=== PATIENT | male | born 1955 | race Caucasian/White ===

== ENCOUNTER → 2019-11-06 09:46 | Outpatient (CLI) | payer BC, SELFPAY ==
--- NOTE | ~2019-11-06 | US_ITS ---
EXAMINATION: US abdomen limited EXAM DATE: 11/06/2019 10:16 INDICATION: Right upper quadrant pain. TECHNIQUE: Multiple grayscale and Doppler images of the abdomen right upper quadrant were obtained (b y a technologist who performed the scan) and subsequently reviewed. There is no prior study for gosia wiley. FINDINGS: The pancreatic head and body are normal in appearance. The pancreatic tail is not visualized. The l iver has normal echogenicity and contour. Focal slightly hyperechoic region was measured at 1.6 x 0. 9 x 1.1 cm. Lesions are nonspecific by ultrasound but statistically this is most likely benign findin g. There is no evidence of intrahepatic biliary duct dilation. Portal venous flow was seen in the h epatopedal, normal direction and has normal Doppler waveform. No right-sided hydronephrosis. Common bile duct measures 3 mm, which is normal. The gallbladder wall is normal in thickness, with ex pected amount of distention. No sonographic evidence of pericholecystic fluid. There is no cholelit hiases. Technologist performing exam reports patient did not demonstrate sonographic Perla's sign. Please note that this sign is less reliable in patients who have received pain medication. IMPRESSION: 1. Nonspecific hyperechoic small liver region or lesion; consider 6 month follow-up right upper quad rant sonogram. Reviewed, dictated and finalized at location B. RUMENT MAINTENANCE SUPERVISOR IMPRESSION: 1. Nonspecific hyperechoic small liver region or lesion; consider 6 month foll ow-up right upper quadrant sonogram.
== END ==
PROVIDERS: Visit Provider Physician Assistant
DX: R10.11 Right upper quadrant pain (principal); R93.89 Abnormal findings on diagnostic imaging of other specified body structures
CPT/HCPCS: 76705

== ENCOUNTER → 2020-05-16 08:44 | Outpatient (CLI) | payer BC, SELFPAY ==
--- NOTE | ~2020-05-16 | US_ITS ---
EXAMINATION: US abdomen limited EXAM DATE: 05/16/2020 09:09 INDICATION: Liver disease. Follow-up. TECHNIQUE: Multiple grayscale and Doppler images of the abdomen right upper quadrant were obtained (george y a technologist who performed the scan) and subsequently reviewed. Comparison is made to prior exami nation from 11/06/2019. FINDINGS: The pancreatic head and body are normal in appearance. The pancreatic tail is not visualized. The l iver has normal echogenicity and contour. Focal homogeneously hyperechoic liver lesion near the dome measuring 1.3 x 1.3 1.3 x 1.7 cm (measurements on prior study at 1.6 x 0.9 x 1.1). This may have min imally increased, or could be within whirley operator variation of measurement acquisition. There is no evide nce of intrahepatic biliary duct dilation. Portal venous flow was seen in the hepatopedal, normal di rection and has normal Doppler waveform. No right-sided hydronephrosis. Common bile duct measures 5 mm, which is normal. The gallbladder wall is normal in thickness, with ex pected amount of distention. No sonographic evidence of pericholecystic fluid. Focal echogenic focu s along the nondependent portion of wall measuring 4 mm which could be a small polyp or fold. Techno logist performing exam reports patient did not demonstrate sonographic Perla's sign. Please note th at this sign is less reliable in patients who have received pain medication. IMPRESSION: Small nonspecific liver lesion, either stable or with minimal interval increase in size. Statistically most likely benign finding but given that cannot be certain this has demonstrated stabi lity, consider MRI abdomen without and with contrast which may add specificity. Reviewed, dictated and finalized at location B. IMPRESSION: Small nonspecific liver lesion, either stable or with minimal inter ross increase in size. Statistically most likely benign finding but given that c annot be certain this has demonstrated stability, consider MRI abdomen without and with contrast which may add specificity.
== END ==
PROVIDERS: PCP Family Medicine; Visit Provider Physician Assistant
DX: K76.9 Liver disease, unspecified (principal)
CPT/HCPCS: 76705

== ENCOUNTER → 2022-06-04 09:17 | Outpatient (CLI) | payer MEDICARE, SELFPAY ==
--- NOTE | ~2022-06-04 | CT_ITS ---
EXAMINATION: CT lung screening DATE: 06/04/2022 09:33 INDICATION: Personal history of nicotine dependence, prior smoker with 30 pack year history TECHNIQUE: Computed tomography (CT) of the chest was performed without intravenous contrast. The dose -length product (DLP) was 114.49 mGy-cm. Automated exposure control and iterative reconstruction tech [employer] were employed. COMPARISON: None FINDINGS: There is moderate emphysema. The lungs are free of acute opacities. No suspicious pulmonary nodules are identified. Calcified pulmonary nodules and calcified left hilar lymph nodes are consist ent with old granulomatous disease. No pathologically enlarged thoracic lymph nodes are identified. T he heart size is normal. There is mild thoracic spondylosis. IMPRESSION: 1. Lung-RADS category 1: Negative. Continue annual screening with noncontrast low-dose chest CT in 12 months. Reviewed, dictated and finalized at location B. IMPRESSION: 1. Lung-RADS category 1: Negative. Continue annual screening with noncontrast l ow-dose chest CT in 12 months.
--- NOTE | ~2022-06-04 | US_ITS ---
EXAMINATION: US aorta [facility] DATE: 06/04/2022 09:46 INDICATION: Abdominal aortic aneurysm screening. Nicotine dependence. TECHNIQUE: Grayscale, color Doppler, and pulsed Doppler images of the aorta and common iliac arteries were obtained. COMPARISON: None. FINDINGS: The proximal aorta measures 2.4 cm. The mid aorta measures 2.4 cm. The distal aorta measures 2.4 cm. The right common iliac artery measures 1.1 cm. The left common iliac artery measures 1.1 cm. IMPRESSION: 1. Normal caliber abdominal aorta. Reviewed, dictated and finalized at location A.
== END ==
PROVIDERS: PCP Family Medicine; Visit Provider Nurse Practitioner
DX: Z87.891 Personal history of nicotine dependence (principal); Z82.49 Family history of ischemic heart disease and other diseases of the circulatory system
CPT/HCPCS: 71271; 76706

== ENCOUNTER 2022-09-29 14:59 | Outpatient (CLI) | payer MEDICARE, SELFPAY ==
--- NOTE | ~2022-09-29 | CT_ITS ---
EXAMINATION: CTA brain carotid DATE: 09/29/2022 15:46 INDICATION: impaired balance TECHNIQUE: Computed tomographic angiography (CTA) of the head was performed without and with 100 mL O mnipaque-350 intravenous contrast. CTA of the neck was performed with intravenous contrast. Automated exposure control and iterative reconstruction technique were employed. The dose-length product was 2 007.92 mGy-cm. Maximum intensity projection and volume rendered 3D-reconstructions were created by jerrica jerome technologist on a separate workstation. COMPARISON: None. FINDINGS: CT BRAIN: Heterogeneously enhancing 5.3 x 4.8 x 6.7 cm intraparenchymal mass in the right parietal lobe with obrien rrounding vasogenic edema, effacement of the right occipital horn and right cerebral sulci, and 4 mm right to left midline shift. No acute large vessel infarct, intracranial hemorrhage, or hydrocephalus . Atherosclerotic intracranial calcifications. CTA HEAD: No large vessel occlusion, aneurysm, high flow vascular malformation, nidus or extravasation. CTA NECK: Aortic arch and proximal great vessels: Minimal atherosclerotic calcifications at the visualized aort ic arch and proximal great vessels. Right common carotid, carotid bifurcation, and internal carotid artery: No significant plaque.There i s 0% stenosis of the proximal right internal carotid artery relative to normal distal artery lumen di ameter (NASCET criteria). Left common carotid, carotid bifurcation, and internal carotid artery: No significant plaque.There is 0% stenosis of the proximal left internal carotid artery relative to normal distal artery lumen diam eter (NASCET criteria). Vertebral arteries: No significant plaque or stenosis. Vertebral arteries co-dominant. Other findings: Calcified mediastinal and hilar lymph nodes. Calcified left lung granuloma. Mild emph ysematous change. IMPRESSION: 1. 6.7 cm heterogeneous intraparenchymal brain mass in the right parietal lobe, causing mild mass eff ect, which likely represents a primary tumor such as GBM or secondary metastatic lesion. Consider MR of the brain without and with contrast for further characterization and neurosurgical consultation. 2. No acute large vessel infarct. 3. No large vessel occlusion. 4. No significant carotid or vertebral artery stenosis. Results reported telephonically to GANESH Vargas by Dr. Fraser at 4:05 PM on 09/29/2022. Reviewed, dictated and finalized at location K. NCIAL SYSTEMS ANALYST IMPRESSION: 1. 6.7 cm heterogeneous intraparenchymal brain mass in the right parietal lobe, causing mild mass effect, which likely represents a primary tumor such as GBM or secondary metastatic lesion. Consider MR of the brain without and with contr ast for further characterization and neurosurgical consultation. 2. No acute large vessel infarct. 3. No large vessel occlusion. 4. No significant carotid or vertebral artery stenosis. Results reported telephonically to GANESH Vargas by Dr. Fraser at 4:05 PM on 09/29/2022.
[2022-09-29 15:35] LABS: Estimated Glomerular Filt Rate > 60
== END 2022-09-29 15:00 | disposition home or self-care (01) ==
PROVIDERS: PCP Family Medicine; Visit Provider Nurse Practitioner
DX: R26.89 Other abnormalities of gait and mobility (principal)
CPT/HCPCS: 70496; 70498; Q9967

== ENCOUNTER → 2022-10-07 10:37 | Outpatient (CLI) | payer MEDICARE, SELFPAY ==
--- NOTE | ~2022-10-07 | MR_ITS ---
EXAMINATION: MR brain/brain stem wo/w con DATE: 10/07/2022 11:27 INDICATION: Brain mass TECHNIQUE: Magnetic resonance imaging (MRI) of the brain and brainstem was performed without and with 16 mL MultiHance intravenous contrast. COMPARISON: Head CT 09/29/2022 FINDINGS: In the right parietal lobe, there is a 5.9 x 4.6 cm enhancing mass with surrounding vasogen ic edema. There is no intracranial hemorrhage or acute ischemic or infarct. There is 5 mm leftward mi dline shift at the foramen of Monro. There is mild mucosal thickening in the ethmoid sinuses. The orb its are normal. The mastoid air cells are normal. IMPRESSION: 1. 5.9 cm mass in right parietal lobe, which may be a glioblastoma or less likely metastatic disease. Reviewed, dictated and finalized at location A. PING ORDER CLERK IMPRESSION: 1. 5.9 cm mass in right parietal lobe, which may be a glioblastoma or less like ly metastatic disease.
== END ==
PROVIDERS: PCP Nurse Practitioner; Visit Provider Nurse Practitioner
DX: G93.89 Other specified disorders of brain (principal)
CPT/HCPCS: 70553; A9577

== ENCOUNTER 2022-10-12 14:30 | Outpatient (CLI) | payer MEDICARE, SELFPAY ==
[2022-10-12 14:42] LABS: Basophils Absolute Auto 0.1 K/mm3 (0.0-0.1); Basophils Percent Auto 1.1 % (0.2-1.2); Eosinophils Absolute Auto 0.1 K/mm3 (0-0.3); Eosinophils Percent Auto 0.8 % (0-4.4); Hematocrit 45.1 % (42.0-52.0); Hemoglobin 15.6 g/dL (14.0-18.0); Immature Granulocyte Absolute 0.01 K/mm3 (0.00-0.031); Immature Granulocyte Percent A 0.1 % (0-0.5); Lymphocytes Absolute Auto 1.67 K/mm3 (0.9-3.2); Mean Corpuscular HGB Conc 34.6 g/dl (32-36); Mean Corpuscular Hemoglobin 32.4 pg (26-34); Mean Corpuscular Volume 93.6 fl (80-100); Mean Platelet Volume 9.4 fl (7.4-10.4); Monocytes Absolute Auto 0.7 K/mm3 (0.1-0.6); Monocytes Percent Auto 8.7 % (2.6-8.5); Neutrophils Absolute Auto 5.4 K/mm3 (1.3-6.7); Neutrophils Percent Auto 68.3 % (45.5-73.1); Platelet Count Result 296 k/mm3 (150-375); Red Blood Count 4.82 M/mm3 (4.6-6.20); Red Cell Distribution Width 11.9 % (11.5-14.5)
[2022-10-12 16:35] LABS: Alanine Aminotransferase 20 U/L (6-50); Albumin Level 4.5 g/dL (3.5-5.1); Alkaline Phosphatase 90 U/L (38-126); Anion Gap 7 mmol/L (8-16); Aspartate Amino Transferase 27 U/L (17-59); Bilirubin,Total 0.6 mg/dL (0.2-1.3); Blood Urea Nitrogen 15 mg/dL (9-20); Calcium 9.2 mg/dL (8.4-10.2); Carbon Dioxide 29 mmol/L (22-30); Chloride 105 mmol/L (98-107); Estimated Glomerular Filt Rate > 60; Glucose 97 mg/dL (65-110); Potassium 4.5 mmol/L (3.4-5.0); Sodium 141 mmol/L (137-145)
== END 2022-10-12 14:31 | disposition home or self-care (01) ==
LOC: ANHLAB 14:31
PROVIDERS: PCP Family Medicine; Visit Provider Internal Medicine Hematology & Oncology
DX: C71.9 Malignant neoplasm of brain, unspecified (principal)
CPT/HCPCS: 36415; 80053; 85025

== ENCOUNTER 2022-10-14 07:11 | Outpatient (CLI) | payer MEDICARE, SELFPAY ==
--- NOTE | ~2022-10-14 | CT_ITS ---
Clinical Indication: Metastatic evaluation, glioblastoma multiforme CT Scan of the Chest, Abdomen, and Pelvis with Contrast: Technique: Contiguous sections were acquired throughout the chest, abdomen, and pelvis after intraven ous administration of 100 cc of Omnipaque 350. Dose reduction technique was used on this scan by joo hawkins automated exposure control and iterative reconstruction technique. The dose-length product (DL P) was 579.55 mGy-cm. COMPARISON: 06/04/2022 Findings: There is no evidence of any significant mediastinal, hilar or axillary lymphadenopathy. Small calcifi ed mediastinal and left hilar lymph nodes are present. Mild coronary artery calcifications are presen t. No aortic aneurysm. There is no evidence of pleural or pericardial effusion. There is mild emphysema with calcified left upper lobe granuloma. No suspicious pulmonary nodule seen . The liver, spleen, pancreas, gallbladder, left adrenal gland, and kidneys are within normal limits. 1 .8 cm right adrenal nodule is present, stable from prior exam. No evidence of aortic aneurysm. No ly mphadenopathy. No bowel obstruction or bowel wall thickening. There is no evidence to suggest acute appendicitis. Urinary bladder is unremarkable. Prostate gland is enlarged. Impression: 1.8 cm right adrenal gland. While stability since 06/04/2022 is somewhat reassuring, this is indetermin ate by Hounsfield units. Consider MR to attempt to further confirm benign adenoma. Mild emphysema. Enlarged prostate gland. Reviewed, dictated and finalized at [facility]. ARD/STEWARDESS CHIEF CARGO VESSEL Impression: 1.8 cm right adrenal gland. While stability since 06/04/2022 is somewhat reassuri ng, this is indeterminate by Hounsfield units. Consider MR to attempt to furthe r confirm benign adenoma. Mild emphysema. Enlarged prostate gland.
== END 2022-10-14 07:12 | disposition home or self-care (01) ==
PROVIDERS: PCP Family Medicine; Visit Provider Internal Medicine Hematology & Oncology
DX: C71.9 Malignant neoplasm of brain, unspecified (principal); J43.9 Emphysema, unspecified; N40.0 Benign prostatic hyperplasia without lower urinary tract symptoms
CPT/HCPCS: 71260; 74177; Q9967

== ENCOUNTER 2022-11-24 10:54 | Observation (INO) | payer MEDICARE, SELFPAY ==
[2022-11-24] VITALS (24 sets, daily range): BP systolic 96–127; BP diastolic 63–79; PULSE 73–81; RESP 16–24; TEMP 36.6–36.9; O2SAT 86–99; BMI 26.0
--- NOTE | ~2022-11-24 | XR_ITS ---
XR chest 2V 11/24/2022 12:44 Indication: Congestion and cough. History of glioblastoma multiform. Procedure: 2 view chest Comparison: CT dated 06/04/2022 Findings: Heart size normal. There is bibasilar airspace disease, consistent with pneumonia. No signi ficant effusion. No pneumothorax. No acute osseous abnormality. Impression: 1: Posterior basilar airspace disease, best seen on lateral view, consistent with pneumonia. Reviewed, dictated and finalized at location B. KETTLE TENDER Impression: 1: Posterior basilar airspace disease, best seen on lateral view, consistent wi th pneumonia.
[2022-11-24 13:15] LABS: Basophils Percent Auto 0.7 % (0.2-1.2); Eosinophils Absolute Auto 0.1 K/mm3 (0-0.3); Hematocrit 40.7 % (42.0-52.0); Hemoglobin 13.9 g/dL (14.0-18.0); Immature Granulocyte Absolute 0.04 K/mm3 (0.00-0.031); Immature Granulocyte Percent A 0.7 % (0-0.5); Lymphocytes Absolute Auto 1.02 K/mm3 (0.9-3.2); Lymphocytes Percent Auto 17.6 % (18.3-44.2); Mean Corpuscular HGB Conc 34.2 g/dl (32-36); Mean Corpuscular Hemoglobin 32.9 pg (26-34); Mean Corpuscular Volume 96.4 fl (80-100); Mean Platelet Volume 8.7 fl (7.4-10.4); Monocytes Absolute Auto 0.5 K/mm3 (0.1-0.6); Monocytes Percent Auto 8.1 % (2.6-8.5); Neutrophils Absolute Auto 4.2 K/mm3 (1.3-6.7); Neutrophils Percent Auto 71.9 % (45.5-73.1); Platelet Count Result 329 k/mm3 (150-375); Red Blood Count 4.22 M/mm3 (4.6-6.20); Red Cell Distribution Width 13.5 % (11.5-14.5); White Blood Count 5.8 K/mm3 (4.5-10.0)
[2022-11-24 13:34] LABS: Alanine Aminotransferase 26 U/L (6-50); Albumin Level 4.1 g/dL (3.5-5.1); Alkaline Phosphatase 92 U/L (38-126); Anion Gap 5 mmol/L (8-16); Aspartate Amino Transferase 33 U/L (17-59); Bilirubin,Total 0.7 mg/dL (0.2-1.3); Blood Urea Nitrogen 12 mg/dL (9-20); Calcium 8.6 mg/dL (8.4-10.2); Carbon Dioxide 27 mmol/L (22-30); Chloride 99 mmol/L (98-107); Estimated Glomerular Filt Rate > 60; Glucose 92 mg/dL (65-110); Potassium 4.4 mmol/L (3.4-5.0); Sodium 131 mmol/L (137-145)
[2022-11-24 13:50] LABS: Influenza A QL RT-PCR Negative (Negative); Influenza B QL RT-PCR Negative (Negative); RSV RNA, RT-PCR Negative (Negative); SARS-CoV-2 RNA PCR Negative
--- NOTE | 2022-11-24 15:58 | ED.URI ---
HPI - URI/Sore Throat General Chief Complaint: Upper Respiratory Infection Stated Complaint: COUGH,COLD Time Seen by Provider: 11/24/22 15:02 History of Present Illness HPI Narrative: Patient is a 67-year-old male with a history of glioblastoma status post craniotomy w/resection approximately 1 month ago at [place] presenting with URI symptoms. Patient states that for the last couple of weeks he has had productive cough and some intermittent shortness of breath. His PCP put him on a Z-Jean Claude several days ago but he continues to have a cough. He was advised to come to the ER for further evaluation. Patient denies lightheadedness, chest pain, abdominal pain, nausea or vomiting, diarrhea, dysuria, leg swelling. States that the incision on his head is healing well. He denies any worsening headaches, vision changes, numbness or weakness, gait difficulties, speech changes. Related Data Home Medications Medication Instructions Recorded Confirmed levetiracetam 500 mg tablet 500 mg PO BID 11/24/22 11/24/22 (Keppra) Allergies Allergy/AdvReac Type Severity Reaction Status Date / Time No Known Allergies Allergy Verified 11/24/22 21:47 Review of Systems Review of Systems: All systems reviewed & are unremarkable except as noted in HPI and below PMFSH Past Medical History Medical History (Updated 11/26/22 @ 21:41 by Pao Obando MD) Antibiotic-induced tinnitus of both ears BPH (benign prostatic hyperplasia) Crushing injury of left hand, initial encounter Glioblastoma Awaiting chemotherapy and radiation Hepatitis C antibody test negative (05/20/21) Surgical History Surgical History (Updated 11/25/22 @ 01:19 by Brittany Parmar NP) H/O brain surgery H/O vasectomy History of tonsillectomy and adenoidectomy Family History Family History Father Murder Grandparent Malignant neoplasm of prostate Social History Social History (Updated 11/25/22 @ 01:20 by Brittany Parmar NP) Social History: He lives alone one child. 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 Code status full code Smoking packs per day: 0.75 Smoking cigarettes per day: 15.0 Smoking status: Former smoker Tobacco type: cigarettes Alcohol intake: current Drinks per week: 3 Alcohol use details: Couple beers weekly Substance use: never Substance use type: does not use Lack of Transportation: No Lack of Food: Never True Current Housing: I Have Housing Concerned About Future Housing: No Difficulty Paying Gas/Electric Bills: No Difficulty Paying for Meds: No Currently Unemployed: No Education: Associate Degree Difficulty w/ Childcare or Family Care: No Living arrangements: alone Occupation/Education: retired Gender identity (if verbalized by the patient): Male Spiritual care concerns: No Agree to blood products: Yes Exam Narrative: GENERAL: Well-appearing, well-nourished, and in no acute distress. HEAD: Well-healing incision right scalp, no signs of infection EYES: PERRLA and EOMI. ENT: Nares clear, no rhinorrhea or epistaxis. Mucous membranes moist. NECK: Supple. CHEST: Clear to auscultation. No respiratory distress. coarse sounds in the bases HEART: Regular rate and rhythm. No murmur heard. Normal peripheral pulses. ABDOMEN: Soft, nontender, nondistended EXTREMITIES: Normal range of motion. No edema. SKIN: Warm, dry, no rash. NEURO: No focal deficits. Alert and oriented x3. PSYCH: Normal mood and affect. Course Vital Signs Vital signs: Vital Signs Temperature 98.5 F 11/24/22 12:05 Pulse Rate 75 11/24/22 12:05 Respiratory Rate 20 11/24/22 12:05 Blood Pressure 102/65 11/24/22 12:05 Pulse Oximetry 95 11/24/22 12:05 Oxygen Delivery Room Air 11/24/22 12:05 Temperature 97.6 F 11/25/22 05:21 Pulse Rate 70 11/25/22 08:43 Respiratory Rate 18 11/25/22 14:00 Blood Pressure 125/72 03
[2022-11-24] MEDS: SODIUM CHLORIDE 0.9% IV 1,000 ML 999 ML IV CONT ×2 (16:13→18:44)
[2022-11-24] MEDS: AMPICILLIN SULB 1.5 GM/NS 50ML 1.5 GM/50 ML VIAL IVPB (16:29)
[2022-11-24] MEDS: DOXYCYCLINE 100 MG/NS 100 ML 100 MG/100 ML BAG IVPB (16:55)
--- NOTE | 2022-11-24 19:29 | PM.IMHP ---
H&P: HPI History of Present Illness Date/Time: 11/24/22 19:29 Chief Complaint: Upper respiratory infection Narrative: This is a 67-year-old male patient who has a history of glioblastoma status post craniotomy with resection approximately 1 month ago. This was performed at [facility]. The patient was recently diagnosed with an upper respiratory infection and was given a Z-Jean Claude several days ago. The patient continues to cough. The in the patient was advised to go to the emergency room for further evaluation. The patient was placed on oxygen at 2 L per nasal cannula. His chest x-ray shows posterior basilar airspace disease best seen on lateral view consistent with pneumonia. Patient's O2 saturation was 86 upon arrival and increased up to 96 with oxygen at 2 L per nasal cannula. His H&H is 13.9 and 40.7. The patient is negative for influenza A/B RSV and COVID. The patient was started on Unasyn and doxycycline as well as IV fluids x2 L. the patient is being admitted to observation status on the date of service of 11/24/2022 Review of Systems Review of Systems: See HPI All systems reviewed & are unremarkable except as noted in HPI and below Constitutional: Constitutional: Reports as per HPI and Reports no additional constitutional complaints Eyes: Eyes: Reports as per HPI and Reports no additional eye complaints ENT: Reports system reviewed and no additional complaints, except as documented and Reports Normal hearing present Cardiovascular: Cardiovascular: Reports no additional cardiovascular complaints Respiratory: Respiratory: Reports no additional respiratory complaints and Reports no additional respiratory complaints Gastrointestinal: Gastrointestinal: Reports as per HPI and Reports no additional gastrointestinal complaints Musculoskeletal: Musculoskeletal: Reports no additional musculoskeletal complaints Integumentary/Breasts: Skin/Breast: Reports system reviewed and no additional complaints, except as docu and Reports as per HPI Neurologic: Reports system reviewed and no additional complaints, except as documented, Reports as per HPI and Reports Normal hearing present Psychiatric: Psychiatric: Reports no additional psychiatric complaints and Reports as per HPI Endocrine: Endocrine: Reports no additional endocrine complaints Hematologic/Lymphatic: Hematologic/Lymphatic: Reports no additional hematologic/lymphatic complaints Allergic/Immunologic: Allergic/Immunologic: Reports no additional allergic/immunologic complaints [facility] Past Medical History Medical History (Updated 11/25/22 @ 01:24 by Brittany Parmar NP) Antibiotic-induced tinnitus of both ears BPH (benign prostatic hyperplasia) Crushing injury of left hand, initial encounter Glioblastoma Awaiting chemotherapy and radiation Hepatitis C antibody test negative (05/20/21) Surgical History Surgical History (Updated 11/25/22 @ 01:19 by Brittany Parmar NP) H/O brain surgery H/O vasectomy History of tonsillectomy and adenoidectomy Family History Family History Father Murder Grandparent Malignant neoplasm of prostate Social History Social History (Updated 11/25/22 @ 01:20 by Brittany Parmar NP) Social History: He lives alone one child. 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 Code status full code Smoking packs per day: 0.75 Smoking cigarettes per day: 15.0 Smoking status: Former smoker Tobacco type: cigarettes Alcohol intake: current Drinks per week: 3 Alcohol use details: Couple beers weekly Substance use: never Substance use type: does not use Lack of Transportation: No Lack of Food: Never True Current Housing: I Have Housing Concerned About Future Housing: No Difficulty Paying Gas/Electric Bills: No Difficulty Paying for Meds: No Currently Unemployed: No Education: Associate Degree Difficulty w/ Childcare or Family Care
--- NOTE | 2022-11-24 20:23 | PC.NURSE ---
Patient arrived on 3 Med-Surg at 20:02
[2022-11-25] VITALS (8 sets, daily range): BP systolic 125; BP diastolic 72; PULSE 67–94; RESP 16–18; TEMP 36.4; O2SAT 90–92
[2022-11-25] MEDS: IPRATROPIUM BR 0.02% INH SOLN 0.5 MG/2.5 ML VIAL INHALATION ×2 (01:58→08:28)
[2022-11-25] MEDS: ALBUTEROL SULFATE NEB 2.5 MG/3 ML INH INHALATION ×2 (01:59→08:28)
--- NOTE | 2022-11-25 02:46 | PC.NURSE ---
Patient refuses to be swabbed for MRSA charge nurse, Zackery Mendoza, made aware
[2022-11-25 07:14] LABS: Basophils Percent Auto 0.8 % (0.2-1.2); Eosinophils Absolute Auto 0.1 K/mm3 (0-0.3); Eosinophils Percent Auto 1.4 % (0-4.4); Hematocrit 36.7 % (42.0-52.0); Hemoglobin 12.4 g/dL (14.0-18.0); Immature Granulocyte Absolute 0.01 K/mm3 (0.00-0.031); Immature Granulocyte Percent A 0.2 % (0-0.5); Lymphocytes Absolute Auto 0.67 K/mm3 (0.9-3.2); Lymphocytes Percent Auto 13.3 % (18.3-44.2); Mean Corpuscular HGB Conc 33.8 g/dl (32-36); Mean Corpuscular Volume 97.6 fl (80-100); Mean Platelet Volume 8.9 fl (7.4-10.4); Monocytes Absolute Auto 0.4 K/mm3 (0.1-0.6); Monocytes Percent Auto 8.5 % (2.6-8.5); Neutrophils Absolute Auto 3.8 K/mm3 (1.3-6.7); Neutrophils Percent Auto 75.8 % (45.5-73.1); Platelet Count Result 341 k/mm3 (150-375); Red Blood Count 3.76 M/mm3 (4.6-6.20); Red Cell Distribution Width 13.5 % (11.5-14.5)
[2022-11-25 07:22] LABS: Anion Gap 4 mmol/L (8-16); Blood Urea Nitrogen 8 mg/dL (9-20); Calcium 8.7 mg/dL (8.4-10.2); Carbon Dioxide 26 mmol/L (22-30); Chloride 105 mmol/L (98-107); Estimated CRCL calculation 104 ml/min; Estimated Glomerular Filt Rate > 60; Glucose 116 mg/dL (65-110); Lactic Acid Reflex 0.9 mmol/L (0.7-2.0); Magnesium 2.2 mg/dL (1.6-2.3); Sodium 135 mmol/L (137-145)
[2022-11-25] MEDS: levETIRAcetam 500 MG TABLET PO (08:24)
--- NOTE | 2022-11-25 09:05 | PM.IMPN ---
Progress Note: A&P Assessment and Plan (1) Pneumonia: Code(s): J18.9 - Pneumonia, unspecified organism Status: Acute Assessment and Plan: -the patient was treated outpatient with azithromycin. As per protocol/antibiotic stewardship the patient was started on Levaquin and vancomycin. The patient was hypoxic with O2 saturations in the 80s when he arrived to ER. The patient is currently on oxygen at 2 L per nasal cannula. -wean off of oxygen when able. Tailor antibiotics to cultures and sensitivity -blood and sputum cultures are pending. CpT Nebulizer treatments Monitor CBC. The patient is afebrile and no white count is noted (2) Glioblastoma: Code(s): C71.9 - Malignant neoplasm of brain, unspecified Status: Acute Assessment and Plan: The patient recently had a craniotomy and the site is healing well to the right parietal area. The patient sees Dr. Willams and has not started his chemotherapy and radiation as of yet. We also discussed the possibility of Port-A-Cath insertion if the patient is going to be on chemotherapy for some time Subjective Date/time seen: 11/25/22 09:05 Review of Systems Review of Systems: All systems reviewed & are unremarkable except as noted in HPI and below Objective Data Vital Signs Vital Signs: Vital Signs - 24 hr 11/24/22 12:05 11/24/22 14:09 11/24/22 14:09 Temperature 98.5 F Pulse Rate 75 76 Respiratory Rate 20 24 H Blood Pressure 102/65 114/73 Pulse Oximetry 95 94 95 Oxygen Delivery Room Air Room Air Room Air Oxygen Flow Rate 11/24/22 14:40 11/24/22 14:23 11/24/22 14:37 Temperature Pulse Rate 76 81 Respiratory Rate 19 23 H Blood Pressure Pulse Oximetry 86 L 91 89 L Oxygen Delivery Room Air Oxygen Flow Rate 11/24/22 14:44 11/24/22 15:33 11/24/22 14:46 Temperature Pulse Rate 73 Respiratory Rate 18 Blood Pressure 110/63 Pulse Oximetry 94 97 95 Oxygen Delivery Nasal Cannula Nasal Cannula Oxygen Flow Rate 2 1 11/24/22 15:15 11/24/22 15:16 11/24/22 15:31 Temperature Pulse Rate 73 73 73 Respiratory Rate 21 H 18 16 Blood Pressure 98/63 L 107/65 Pulse Oximetry 99 98 95 Oxygen Delivery Oxygen Flow Rate 11/24/22 16:16 11/24/22 16:31 11/24/22 17:45 Temperature Pulse Rate 73 77 Respiratory Rate 20 16 Blood Pressure 96/64 L 117/63 Pulse Oximetry 93 92 86 L Oxygen Delivery Room Air Oxygen Flow Rate 11/24/22 16:00 11/24/22 16:46 11/24/22 17:01 Temperature Pulse Rate 79 73 Respiratory Rate 18 20 Blood Pressure 114/68 122/71 Pulse Oximetry 94 90 96 Oxygen Delivery Room Air Oxygen Flow Rate 11/24/22 17:31 11/24/22 17:45 11/24/22 17:46 Temperature Pulse Rate 73 Respiratory Rate 16 Blood Pressure 113/68 Pulse Oximetry 90 86 L 90 Oxygen Delivery Nasal Cannula Oxygen Flow Rate 2 11/24/22 17:48 11/24/22 19:33 11/24/22 19:53 Temperature 97.8 F Pulse Rate 73 77 Respiratory Rate 20 16 Blood Pressure 123/79 127/79 Pulse Oximetry 94 96 90 Oxygen Delivery Nasal Cannula Oxygen Flow Rate 2 11/24/22 23:22 11/24/22 20:00 11/25/22 00:22 Temperature Pulse Rate 76 94 Respiratory Rate Blood Pressure Pulse Oximetry 92 Oxygen Delivery Nasal Cannula Oxygen Flow Rate 3 11/25/22 02:01 11/25/22 02:02 11/25/22 05:21 Temperature 97.6 F Pulse Rate 67 71 Respiratory Rate 18 16 Blood Pressure 125/72 Pulse Oximetry 90 92 Oxygen Delivery Nasal Cannula Oxygen Flow Rate 3 11/25/22 04:22 11/25/22 08:30 11/25/22 08:43 Temperature Pulse Rate 75 75 70 Respiratory Rate 18 18 Blood Pressure Pulse Oximetry Oxygen Delivery Oxygen Flow Rate Intake/Output Intake/Output: Intake & Output 11/22/22 11/23/22 11/24/22 11/25/22 23:59 23:59 23:59 23:59 Intake Total 2150 Balance 2150 Meds/Results Medications: Active Medications Generic Name Dose Route Start Last Admin T
--- NOTE | 2022-11-25 10:30 | PM.DS ---
DS: Admitting Diagnosis Discharge Date 11/25/22 1030 Admitting Diagnosis community-acquired pneumonia DS: Discharge Diagnosis Discharge Diagnosis (1) Pneumonia: Code(s): J18.9 - Pneumonia, unspecified organism Status: Acute Assessment and Plan: Failed outpatient with azithromycin. Continue Levaquin and vancomycin. O2 saturations in the 80s when he arrived to ER. supplemental oxygen weaned to room air Tailor antibiotics to cultures and sensitivity blood and sputum cultures still pending Cornet and IS therapy Nebulizer treatments No WBC noted, currently at 5.0 (2) Glioblastoma: Code(s): C71.9 - Malignant neoplasm of brain, unspecified Status: Acute Assessment and Plan: The patient recently had a craniotomy and the site is healing well to the right parietal area. The patient sees Dr. Willams and has not started his chemotherapy and radiation as of yet. We also discussed the possibility of Port-A-Cath insertion if the patient is going to be on chemotherapy for some time DS: Summary Hospital Course Hospital Course: patient is 67-year-old male with past medical history of BPH, glioblastoma, craniotomy who presented to the ED with complaints of increased shortness of breath and cough. Patient was recently treated with azithromycin and steroids however patient did not take the steroids. Patient stated that his symptoms never really resolved with a azithromycin. Currently patient is on IV vancomycin and Levaquin. Patient stated that he feels a whole lot better today. He did state that he was able to get to the bathroom and back and forth to the bed without any issues of walking. Patient has been weaned to room air. He does still have a cough however he stated that his sputum is white. Chest x-ray did indicate bibasilar opacities indicating pneumonia. White blood cell count is negative. Sputum culture, blood cultures are all pending at this time. Currently patient has no wheezes and stated that he has not been wheezing since he has been admitted. He does feel significantly better and is wanting to go home. Currently he denies any chest pain, nausea, vomiting, diarrhea, constipation, weakness or fatigue. Did have nursing walk patient to check on SpO2. SpO2 remained stable and patient is stable for discharge Per labs and vital signs. Status at Discharge Functional status at discharge: independent ambulation Overall status at discharge: patient is progressing back to baseline Time Spent with Patient Time attestation: Total time spent providing and/or coordinating discharge services: 53 minutes Time spent: Greater than 30 minutes Specific discharge activities: Diagnostic testing, chart review, developing a treatment plan, education, care coordination documentation, physical exam, result review Exam Narrative: General: well-nourished, well-appearing 67-year-old male, sitting up in bed, comfortable, NARD Neuro: awake, alert and oriented x4, speech clear, no focal neuro deficits noted HEENMT: normocephalic, atraumatic, EOMI, sclerae anicteric, moist oral mucosa Respiratory: Clear to auscultation bilaterally without crackles, rhonchi or wheezes, nonlabored breathing Cardio: regular rate, regular rhythm with S1-S2 Abdomen: nondistended, normoactive bowel sounds, soft, nontender to palpation Extremities: no edema, erythema, or tenderness to palpation, DP pulses 2+ bilaterally Skin: no rashes or lesions, warm and dry Psych: appropriate mood and affect, judgment and insight intact DS: Data Data Completed and Pending Labs on day of discharge: Labs from last 24 hours 11/25/22 11/25/22 11/25/22 06:53 06:53 06:53 WBC 5.0 RBC 3.76 L Hgb 12.4 L Hct 36.7 L MCV 97.6 MCH 33.0 MCHC 33.8 RDW 13.5 Plt Count 341 MPV 8.9 Immature Gran % (Auto) 0.2 Neut % (Auto) 75.8 H Lymph % (Auto) 13.3 L [place] % (Auto) 8.5 Eos % (
== END 2022-11-25 14:25 | disposition home or self-care (01) ==
LOC: ANHED 15:28 → ANH3MEDSUR 19:26
PROVIDERS: Emergency Medicine; Nurse Practitioner; Admitting Provider Family Medicine; Emergency Provider Emergency Medicine; PCP Family Medicine; Visit Provider Family Medicine
DX: J18.9 Pneumonia, unspecified organism (principal); C71.9 Malignant neoplasm of brain, unspecified; N40.0 Benign prostatic hyperplasia without lower urinary tract symptoms; R09.02 Hypoxemia; Z20.822 Contact with and (suspected) exposure to COVID-19; R91.8 Other nonspecific abnormal finding of lung field; Z98.890 Other specified postprocedural states; F10.90 Alcohol use, unspecified, uncomplicated; Z87.891 Personal history of nicotine dependence; Z80.42 Family history of malignant neoplasm of prostate
CPT/HCPCS: 36415; 71046; 80048; 80053; 83605; 83735; 85025; 87040; 87070; 87081; 87205; 87637; 94640; 94667; 94668; 96361; 96365; 96367; 96375; 99285; A9270; G0378; J0295; J1956; J3370; J7030

== ENCOUNTER 2022-12-06 12:25 | Outpatient (RCR) | payer MEDICARE, SELFPAY ==
--- NOTE | 2022-12-06 14:15 | OTOPEVAL1 ---
Assessment and note entered by Giulia Armijo OTR/L Evaluation Information Assessment Status Evaluation Diagnosis brain tumor with craniotomy 10/28/2022 Subjective Information Patient presents to outpatient OT following a craniotomy to remove a brain tumor for the R parietal lobe. Patient reports since surgery has no L peripheral vision and will bump into things. Patient reports neuro surgeon did not think the L peripheral vision would return. Patient reports some deficits with L hand and fine motor skills with turning objects, griping, grasping. Patient reports has not been to a neuro ophthamologist. Reported Pain Level Pain Score 0: Self Report Assessment OT Clinical Summary Aldair is a 67 year old male who presents to Outpatient OT following a craniotomy on 10/28/2022 to remove a tumor from the R side parietal lobe. Patient reports L side vision impairment prior to surgery which got worse following surgery resulting in running into objects on L side. Patient reports neuro surgeon did not think the L side field cut would improve at this time. Patient reports some deficit with fine motor coordination , which was minimally impaired when measured through 9-hole peg test. Patient demonstrates bilateral UE strength that is WFL. Patient demonstrates occulomotor range of motion, tracking , fixation, visual line bisection WFL. Patient's peripheral vision on L side was impacted, demonstrated not being able to see object temporally, superiorly, and inferiorly until the object was placed into midline. Issued patient a HEP for occulomotor strengthening, fine motor coordination, in addition to discussing compensatory strategies with patient for L side vision cut. Patient plans to complete issued HEP independently at home prior to scheduling more OT appointments, plan to follow up in two weeks if needed. Patient may benefit from seeing a neuro driver for additional assessment of vision . Plan of Care OT Services Indicated Yes Treatment Frequency and Will follow up in 2 months if needed. Duration These treatments will address the objective and functional deficits as defined above. The patient will be advanced safely and appropriately in order for the patient to progress towards his/her prior level of function. Additional exercises will be introduced and as well as a comprehensive home exercise program upon discharge, if needed, ?to ensure carryover of functional gains achieved in the cli
--- NOTE | 2023-03-03 12:04 | OTOPDC ---
Assessment and note entered by Giulia Armijo OTR/Ariel Evaluation Information Assessment Status Discharge - Pt Not Present Assessment OT Clinical Summary Patient evaluated for OT on 12/06/2022 and opted not to make additional appointments for therapy at this time. Patient is to be discharged from OT. If patient would like to resume OT will need new orders. Plan of Care OT Services Indicated No
== END 2023-03-03 16:16 | disposition home or self-care (01) ==
LOC: ANHGOSHOT 12:25
PROVIDERS: PCP Family Medicine
DX: D49.6 Neoplasm of unspecified behavior of brain (principal)
CPT/HCPCS: 97110; 97165